=== PATIENT | male | born 1950 | race Caucasian/White ===

== ENCOUNTER → 2018-05-07 | Outpatient (CLI) | payer MEDICARE ==
[~2018-05-07] MED LIST: ASPI-515 PO; CHOL10002 PO; DOCU-131 PO; METF500T17 PO; METFORMIN PO; OMEG500C3 PO; OXYC-302 PO; TAMS0.4C2 PO; ZOLP10TA5 PO
== END | disposition home or self-care (01) ==
LOC: CFH 14:27
PROVIDERS: ATTEND Internal Medicine Cardiovascular Disease
DX: Q21.1 Atrial septal defect (principal); R07.9 Chest pain, unspecified; E11.9 Type 2 diabetes mellitus without complications; Z87.891 Personal history of nicotine dependence
CPT/HCPCS: 93306